=== PATIENT | female | born 1990 | race Caucasian/White ===

== ENCOUNTER 2022-09-18 17:14 | Emergency (ER) | payer OTHER ==
[~2022-09-18] VITALS: Ht 165.1 cm; Wt 71.2 kg
[2022-09-18 17:39] VITALS: BP 117/75
--- NOTE | 2022-09-18 19:05 | NUR ---
@1735 c/o vaginal bleeding for 2 weeks misscarriage. PT A/OX4. TOLERATING R/A WELL WITH NO RESP DISTRESS. SAFETY MEASURES IN PLACE.
--- NOTE | 2022-09-18 21:46 | NUR ---
Piotr zee in ED - 09/18/22 at 2154 by DEBI Patient discharged to home in stable condition. Written and verbal after care instructions given. Patient verbalizes understanding of instruction.
[2022-09-18 22:06] LABS: BILIRUBIN,URINE NEGATIVE (NEGATIVE); COLOR,URINE YELLOW (YELLOW); LEUKOCYTE ESTERASE ,URINE NEGATIVE (NEGATIVE); NITRITE, URINE NEGATIVE (NEGATIVE); PROTEIN,URINE NEGATIVE (NEGATIVE); UGLUCOSE NEGATIVE (NEGATIVE); UROBILINOGEN,URINE 0.2 EU/dL (0.2)
--- NOTE | 2022-09-18 22:30 | NUR ---
Patient does not wish to proceed with medical care recommended by Dr. Valerio. Patient given information related to possible complications, up to and including , which could occur as a result of leaving the hospital at this time. Patient verbalizes understanding of risks involved due to leaving against medical advice. Patient has signed AMA form. PT ambulatory with a steady gait
[2022-09-18 23:40] LABS: BACTERIA,URINE None seen /HPF (None Seen); RBC,URINE TOO NUMEROUS TO COUN /HPF (0-2); SQUAMOUS EPITHELIAL CELL,UR Few /HPF (None Seen); WBC,URINE 0-2 /HPF (0-3)
== END 2022-09-18 22:33 | disposition left against medical advice (07) ==
LOC: ER 17:14
DX: N83.291 Other ovarian cyst, right side (principal); D25.2 Subserosal leiomyoma of uterus; N93.9 Abnormal uterine and vaginal bleeding, unspecified
CPT/HCPCS: 76856-TC; 81001; 84703-TC

== ENCOUNTER 2022-09-26 20:54 | Emergency (ER) | payer OTHER ==
[~2022-09-26] VITALS: Ht 167.6 cm; Wt 68.0 kg
--- NOTE | 2022-09-26 21:30 | NUR ---
TO ER BED 10. [id number] FROM HOME C/O LAC TO SEAMUS. PT STATES "HIT HEAD ON NIGHTSTAND". PT IS ALERT AND ORIENTED. RR EVEN AND NONLABORED. DENIES KO. VSS
[2022-09-26] MEDS ORDERED: LIDOCAINE HCL/MPF 1% 30 ML VIAL IJ ONE (21:54)
--- NOTE | 2022-09-26 23:12 | NUR ---
Patient discharged to home in stable condition. Written and verbal after care instructions given. Patient verbalizes understanding of instruction.
[2022-09-26 23:15] VITALS: BP 118/80
== END 2022-09-26 23:15 | disposition home or self-care (01) ==
LOC: ER 21:03
DX: S01.81XA Laceration without foreign body of other part of head, initial encounter (principal); W06.XXXA Fall from bed, initial encounter; Y93.89 Activity, other specified; Y92.89 Other specified places as the place of occurrence of the external cause; Y99.8 Other external cause status
CPT/HCPCS: 99284; 70450; 12013; J3490